=== PATIENT | male | born 1990 | race African-American/Black ===

== ENCOUNTER 2022-11-03 22:53 | Emergency (ER) | payer MEDICAID, SELFPAY ==
[2022-11-03 23:17] VITALS: BP 147/93; PULSE 87; RESP 14; TEMP 37.1; O2SAT 100
== END 2022-11-04 00:20 | disposition left against medical advice (07) ==
LOC: ANHED 23:34
DX: R11.10 Vomiting, unspecified (principal)
CPT/HCPCS: 99199

== ENCOUNTER 2022-12-11 04:00 | Emergency (ER) | payer BC, SELFPAY ==
[2022-12-11 03:58] VITALS: PULSE 77; RESP 22; TEMP 36.4; O2SAT 98
[2022-12-11 04:08] VITALS: RESP 16
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
[2022-12-11 04:33] VITALS: BP 138/79; PULSE 83; PULSE 84; RESP 15; O2SAT 97
--- NOTE | 2022-12-11 05:02 | PC.NURSE ---
pt. ambulated out of ed w/ steady gait. pt. NAD upon departure.
== END 2022-12-11 05:00 | disposition left against medical advice (07) ==
PROVIDERS: Emergency Provider Emergency Medicine
DX: T40.2X1A Poisoning by other opioids, accidental (unintentional), initial encounter (principal)
CPT/HCPCS: 99283